=== PATIENT | male | born 1960 | race Hispanic/Latino ===

== ENCOUNTER 2020-04-01 09:22 | Emergency (ER) | payer OTHER ==
[2020-04-01] MEDS ORDERED: Sodium Chloride 0.9% 1,000 ML ONE ×2 (09:52→10:37)
--- NOTE | 2020-04-01 10:10 | RAD ---
Exam: Chest one view HISTORY:Inconsolable episode yesterday Comparison: None FINDINGS: Cardiac silhouette: Normal Aorta: Unremarkable Pulmonary vessels: Normal Costophrenic angles: Clear LUNGS: No masses or consolidation. Pneumothorax: None Osseous abnormalities: None IMPRESSION: No acute cardiopulmonary process.
--- NOTE | 2020-04-01 10:12 | CT ---
CT BRAIN NONCONTRAST: DATE: 04/01/2020 HISTORY: 59-year-old male status post syncope FINDINGS: There is no evidence of acute intra-axial or extra-axial hemorrhage. There is no midline shift or any other mass effect. There is no extra-axial fluid collection. There is no evidence of obstructive hydrocephalus. Calvarium is intact. There is opacification of the right mastoid antrum and all of the right mastoid air cells. IMPRESSION: 1. No acute intracranial findings. 2. Right mastoid effusion versus right otomastoiditis.
[2020-04-01 10:19] LABS: ALT (SGPT) 174 U/L (8-55); AST (SGOT) 287 U/L (5-34); Albumin 4.1 g/dL (3.5-5.0); Alkaline Phosphatase 90 U/L (40-110); Anion Gap 23 mmol/L (10-20); BUN (Urea Nitrogen) 11 mg/dL (8.4-25.7); Bilirubin, Total 1.3 mg/dL (0.2-1.2); Calc. Creatinine Clearance 0 mL/min (70-130); Carbon Dioxide 22 mmol/L (22-29); Chloride 96 mmol/L (98-107); Estimated GFR-MDRD 87; Globulin 3.4 g/dL (2.4-3.5); Glucose 246 mg/dL (70-105); Magnesium 2.4 mg/dL (1.6-2.6); Potassium 4.3 mmol/L (3.5-5.1); Protein, Total 7.5 g/dL (6.0-8.3); Sodium 137 mmol/L (136-145)
[2020-04-01] MEDS ORDERED: Bacitracin 1 PK ONE (10:23)
[2020-04-01 10:25] LABS: #Basophils 0.1 thou/uL (0.0-0.2); #Lymphocytes 0.9 thou/uL (1.20-3.40); #Monocytes 1.1 thou/uL (0.11-0.59); #Neutrophils 8.1 thou/uL (1.40-6.50); %Basophils 1.1 % (0.0-1.0); %Lymphocytes 8.3 % (21.0-51.0); %Monocytes 10.8 % (0.0-10.0); %Neutrophils 79.8 % (42.0-75.0); Hemoglobin 14.7 g/dL (14.0-18.0); Mean Corpuscular HGB CONC 33.7 g/dL (32.0-36.0); Mean Corpuscular Volume 97.8 fL (78.0-98.0); Mean Platelet Volume 11.6 fL (7.4-10.4); Platelet Count 97 thou/uL (130-400); Platelet Morphology Comment Appears Decreased; RBC Distribution Width 11.4 % (11.5-14.5); Red Blood Cell (RBC) Count 4.47 mill/uL (4.70-6.10); White Blood Cell (WBC) Count 10.2 thou/uL (4.8-10.8)
[2020-04-01] MEDS ORDERED: Aspirin Chewable 81 MG TAB ONE (10:37)
[2020-04-01] MEDS ORDERED: cefTRIAXone\\ROCEPHIN 2 GM VIAL ONE (10:37)
[2020-04-01] MEDS ORDERED: Sodium Chloride 0.9% 100 ML ONE (10:39)
[2020-04-01 10:43] LABS: CK (CPK) 7660 U/L (30-200)
[2020-04-01 10:47] LABS: Bilirubin Negative (Negative); Blood, Urine Moderate (Negative); Clarity Clear (Clear); Glucose, Urine (Dipstick) >=1000 mg/dL (Negative); Ketone, Urine Trace mg/dL (Negative); Leukocyte Negative (Negative); Nitrite Negative (Negative); Protein, Urine (Dipstick) 30 mg/dL (Neg-Trace); Specific Gravity, Urine 1.015 (1.005-1.030)
[2020-04-01 10:52] LABS: Bacteria/HPF Rare-Few HPF (None Seen); Squamous Epithelial None Seen HPF (0-3); WBC/HPF 0-3 HPF (0-3)
== END 2020-04-01 11:54 | disposition short-term general hospital (02) ==
LOC: NAV ERS 09:22
DX: R55 Syncope and collapse (principal); R74.0 Nonspecific elevation of levels of transaminase and lactic acid dehydrogenase [LDH]; R79.89 Other specified abnormal findings of blood chemistry; R53.1 Weakness; R29.701 NIHSS score 1; E11.9 Type 2 diabetes mellitus without complications; Z87.891 Personal history of nicotine dependence
CPT/HCPCS: 36416; 70450; 71045; 80053; 81003; 81015; 82550; 82553; 83605; 83735; 84484; 85025; 87086; 93005; 96361; 96365; J0696; J3490; J7050